=== PATIENT | male | born 1955 | race Caucasian/White ===

== ENCOUNTER 2017-04-30 05:08 | Emergency (ER) | payer MEDICAID ==
[~2017-04-30] VITALS: Ht 180.3 cm; Wt 71.0 kg
[~2017-04-30 05:08] MED LIST: ASPI-1159 PO; ATOR-2 PO; LISI30TA36 PO; METF10002 PO
[2017-04-30] MEDS ORDERED: LIDOCAINE HCL/EPINEPHRINE 1%-EPI 1:100,000 30 ML VIAL INFIL ONE (07:30)
[2017-04-30 09:05] VITALS: BP 126/69
== END 2017-04-30 09:34 | disposition home or self-care (01) ==
LOC: ER 05:08
DX: K13.79 Other lesions of oral mucosa (principal); I10 Essential (primary) hypertension; E11.9 Type 2 diabetes mellitus without complications; Z79.82 Long term (current) use of aspirin; Z98.890 Other specified postprocedural states; Z95.5 Presence of coronary angioplasty implant and graft
CPT/HCPCS: 99283